=== PATIENT | female | born 1975 | race Caucasian/White ===

== ENCOUNTER 2018-03-02 13:07 | Day surgery (SDC) | payer BC ==
[~2018-03-02 13:07] MED LIST: ERGO50000 PO; ZOFR4TAB3 SL
[2018-03-02 13:40] VITALS: BP 111/67; PULSE 82; RESP 16; TEMP 98; O2SAT 98
--- NOTE | 2018-03-02 14:53 | RADRPT ---
EXAM DATE/TIME: 03/02/2018 13:42 [place] COMPARISON: No previous studies available for comparison. EXTERNAL COMPARISON: [facility], CT SOFT TISSUE NECK W/CONTRAST, Jan 22 2018. INDICATIONS : Enlarged right neck lymph node. MEDICAL HISTORY : Hypertension. Sleep apnea. Hernia, hiatal. GERD. Polycystic ovarian disease. SURGICAL HISTORY : Tonsillectomy. section. Tubal ligation. [place] teeth extraction. Ablation. Laprascopy x2. ENCOUNTER: Initial ACUITY: 1 month PAIN SCORE: Not applicable LOCATION: Right neck FINDINGS: The patient was evaluated prior to performing the biopsy with ultrasound. There are some scattered, s mall nodes evident the largest measures 1.5 cm x 2 mm. Based on the previous imaging reports these no leanne have significantly decreased in size. The patient states she noted a decrease in size of the lymph nodes when she started antibiotics appro ximately 5 days previous. The risk, benefits and potential complications of the biopsy were discussed with the patient. The pat ient was given the option to finish the course of antibiotics as there has been significant response to this so far. She was advised if these enlarge or come back within the next 10-14 days we would be happy to proceed with biopsy. CONCLUSION: 1. The patient has responded well to antibiotic therapy with significant reduction in size of the rig ht posterior cervical adenopathy. We will wait until she finishes the course of antibiotics. If the n odes do not resolve the patient will return in 10-14 days for biopsy of this area. Chaz Matson MD on March 02, 2018 at 14:47 Board Certified Radiologist. This report was verified electronically.
== END 2018-03-02 17:18 | disposition home or self-care (01) ==
LOC: HRAD 13:07 → HRIP 13:12 → HRAD 17:18
PROVIDERS: ATTEND Otolaryngology Otolaryngology/Facial Plastic Surgery
DX: R59.9 Enlarged lymph nodes, unspecified (principal); I10 Essential (primary) hypertension; G47.30 Sleep apnea, unspecified; K21.9 Gastro-esophageal reflux disease without esophagitis; E28.2 Polycystic ovarian syndrome; K44.9 Diaphragmatic hernia without obstruction or gangrene
CPT/HCPCS: 76536